=== PATIENT | female | born 1985 | race Caucasian/White ===

== ENCOUNTER 2017-01-17 15:43 | Outpatient (RCR) | payer OTHER ==
[~2017-01-17 15:43] MED LIST: ADDERALL XR15 MG; BCP TD; COLACE 100100 MG/CAP PO; CONCERTA; CONCERTA54 MG PO; EFFEXOR 75M75 MG/TAB PO; EFFEXOR50 MG PO; LO LOESTRIN FE1 TAB PO; METRONIDAZOLE500 MG PO; NORETHINDRONE 5 MG PO; PERCOCET 325 MG1 TAB PO; RITALIN; RITALIN 20M20 MG/TAB PO; TYLENOL 500MG500 MG PO; VICODIN 5/5001 UDTAB PO; WELLBUTRIN PO; ZOFRAN 4MG T4 MG/TAB PO; ZOFRAN ODT4 MG PO; ZOFRAN4 M1 PO
== END 2017-02-05 07:48 ==
LOC: WSOH 15:43
DX: S05.02XA Injury of conjunctiva and corneal abrasion without foreign body, left eye, initial encounter (principal); H53.71 Glare sensitivity; W22.8XXA Striking against or struck by other objects, initial encounter; Y99.0 Civilian activity done for income or pay

== ENCOUNTER 2018-10-03 08:26 | Outpatient (RCR) | payer OTHER | END 2018-10-07 15:36 | LOC: WSOH 08:26 | DX: S83.92XD Sprain of unspecified site of left knee, subsequent encounter (principal); Z90.710 Acquired absence of both cervix and uterus; Z90.89 Acquired absence of other organs | CPT/HCPCS: 24774; G0283-GP; L1810 ==

== ENCOUNTER 2018-12-18 15:30 | Outpatient (RCR) | payer OTHER | END 2018-12-29 13:17 | disposition home or self-care (01) | LOC: WSPT 15:30 | DX: S83.512A Sprain of anterior cruciate ligament of left knee, initial encounter (principal); T14.8XXA Other injury of unspecified body region, initial encounter; M23.52 Chronic instability of knee, left knee ==

== ENCOUNTER 2019-07-19 16:22 | Emergency (ER) | payer MEDICAID ==
[~2019-07-19] VITALS: Ht 170.2 cm; Wt 100.0 kg
[2019-07-19 16:31] VITALS: TEMP 98.7
[2019-07-19 17:19] LABS: BASO # 0.1 (0.0-0.2); BASO % 0.7 % (0.0-2.0); EOS # 0.2 (0.0-0.7); EOS % 1.8 % (0-4.0); GRAN % 53.7 % (42.2-75.2); HEMATOCRIT 44.2 % (37.0-47.0); HEMOGLOBIN 14.7 g/dl (12.5-16.0); LYMPH # 3.6 (1.2-3.4); LYMPH % 38.2 % (20.0-51.0); MEAN CELL VOLUME 89 fl (80.0-100.0); MEAN CORPUSCULAR HEMOGLOBIN 30 pg (27.0-31.0); MEAN CORPUSCULAR HGB CONC 33 g/dl (33.0-37.0); MEAN PLATELET VOLUME 9.9 fl (7.4-10.4); MONO # 0.5 (0.1-0.6); MONO % 5.3 % (1.7-9.3); PLATELET COUNT 271 K/mm3 (130-400); RED BLOOD COUNT 4.97 M/mm3 (4.10-5.30); REDCELL DISTRIBUTION WIDTH-CV 12.6 % (11.5-14.5)
[2019-07-19 17:22] LABS: ALBUMIN 4.6 gm/dL (3.5-5.0); BILIRUBIN,TOTAL 0.5 mg/dL (0.0-1.0); C-REACTIVE PROTEIN 0.7 mg/dL (0.0-0.9); CALCIUM 9.4 mg/dL (8.4-10.2); CREATININE, serum 0.79 (0.52-1.25); POTASSIUM 3.4 mmol/L (3.4-5.0)
[2019-07-19] MEDS ORDERED: BENADRYL50 MG PO (17:26)
[2019-07-19] MEDS ORDERED: TYLENOL 500MG500 MG PO (17:27)
[2019-07-19] MEDS ORDERED: COZAAR100 MG PO (17:28)
[2019-07-19] MEDS ORDERED: MICROZIDE12.5 MG PO (17:28)
[2019-07-19 18:55] LABS: ERYTHROCYTE SEDIMENTATION RATE 6 mm/hr (0-20)
[2019-07-19 19:50] VITALS: BP 120/84; PULSE 87
== END 2019-07-19 20:00 | disposition home or self-care (01) ==
LOC: COL.ER 16:22
PROVIDERS: Emergency Medicine
DX: R51 Headache (principal); F32.9 Major depressive disorder, single episode, unspecified; F90.9 Attention-deficit hyperactivity disorder, unspecified type
CPT/HCPCS: J1885; J2405; J3010; J7030

== ENCOUNTER 2020-12-07 18:46 | Emergency (ER) | payer MEDICARE, MEDICAID ==
[~2020-12-07] VITALS: Ht 170.2 cm; Wt 106.8 kg
[~2020-12-07 18:46] MED LIST changes: +BENADRYL50 MG PO; +COZAAR100 MG PO; +MICROZIDE12.5 MG PO
[2020-12-07 19:14] VITALS: TEMP 98.1
[2020-12-07 21:38] LABS: BASO # 0.1 (0.0-0.2); BASO % 0.8 % (0.0-2.0); EOS # 0.2 (0.0-0.7); EOS % 1.8 % (0-4.0); GRAN # 4.9 (1.4-6.5); GRAN % 50.7 % (42.2-75.2); HEMATOCRIT 45.6 % (37.0-47.0); HEMOGLOBIN 14.8 g/dl (12.5-16.0); LYMPH % 41.3 % (20.0-51.0); MEAN CELL VOLUME 93 fl (80.0-100.0); MEAN CORPUSCULAR HEMOGLOBIN 30 pg (27.0-31.0); MEAN CORPUSCULAR HGB CONC 33 g/dl (33.0-37.0); MEAN PLATELET VOLUME 9.7 fl (7.4-10.4); MONO # 0.5 (0.1-0.6); MONO % 5.2 % (1.7-9.3); PLATELET COUNT 282 K/mm3 (130-400); RED BLOOD COUNT 4.91 M/mm3 (4.10-5.30); REDCELL DISTRIBUTION WIDTH-CV 12.9 % (11.5-14.5)
[2020-12-07 21:56] LABS: ALANINE AMINOTRANSFERASE 58 U/L (4-34); ALBUMIN 4.4 gm/dL (3.5-5.0); ALKALINE PHOSPHATASE 93 U/L (50-136); ANION GAP 4 mmol/L (7-16); AST,SGOT 39 U/L (15-37); BILIRUBIN,TOTAL 0.8 mg/dL (0.0-1.0); BLOOD UREA NITROGEN 10 mg/dL (7-17); CALCIUM 9.4 mg/dL (8.4-10.2); CARBON DIOXIDE 31 mmol/L (22-30); CHLORIDE 103 mmol/L (98-107); CREATININE, serum 0.73 (0.52-1.25); GLUCOSE 93 mg/dL (74-106); POTASSIUM 3.6 mmol/L (3.4-5.0); SODIUM 138 mmol/L (137-145); TOTAL PROTEIN 7.9 gm/dL (6.4-8.2)
[2020-12-07 22:36] LABS: TROPONIN-I < 0.012 ng/mL (0.000-0.035)
[2020-12-07 23:24] VITALS: BP 119/69; PULSE 89
[2020-12-07] MEDS ORDERED: ATARAX50 MG PO (23:24)
== END 2020-12-07 23:24 | disposition home or self-care (01) ==
LOC: COL.ER 18:46
PROVIDERS: Emergency Medicine
DX: F41.0 Panic disorder [episodic paroxysmal anxiety] (principal); F32.9 Major depressive disorder, single episode, unspecified; R07.89 Other chest pain; Z56.3 Stressful work schedule; Z79.899 Other long term (current) drug therapy

== ENCOUNTER 2021-08-27 07:12 | Emergency (ER) | payer MEDICARE, MEDICAID ==
[~2021-08-27] VITALS: Ht 170.2 cm; Wt 106.8 kg
[~2021-08-27 07:12] MED LIST changes: +ATARAX50 MG PO
[2021-08-27 07:19] VITALS: TEMP 98.8
[2021-08-27 07:40] LABS: BASO % 0.3 % (0.0-2.0); EOS # 0.1 K/mm3 (0.0-0.7); GRAN # 8.7 K/mm3 (1.4-6.5); HEMATOCRIT 42.3 % (37.0-47.0); HEMOGLOBIN 14.4 g/dl (12.5-16.0); LYMPH # 0.9 K/mm3 (1.2-3.4); LYMPH % 8.4 % (20.0-51.0); MEAN CELL VOLUME 87 fl (80.0-100.0); MEAN CORPUSCULAR HEMOGLOBIN 30 pg (27-31); MEAN CORPUSCULAR HGB CONC 34 g/dl (33.0-37.0); MEAN PLATELET VOLUME 9.5 fl (7.4-10.4); MONO # 0.5 K/mm3 (0.1-0.6); MONO % 4.9 % (1.7-9.3); PLATELET COUNT 269 K/mm3 (130-400); RED BLOOD COUNT 4.84 M/mm3 (4.10-5.30); REDCELL DISTRIBUTION WIDTH-CV 12.8 % (11.5-14.5)
[2021-08-27 07:59] LABS: ALBUMIN 3.9 gm/dL (3.5-5.0); C-REACTIVE PROTEIN 4.13 mg/dL (0.00-0.50); CALCIUM 8.6 mg/dL (8.4-10.2); CREATININE, serum 0.73 mg/dL (0.57-1.11); POTASSIUM 3.6 mmol/L (3.5-4.5); TOTAL PROTEIN 7.3 gm/dL (6.2-8.1)
[2021-08-27 08:41] LABS: COLLECTION METHOD CLEAN CATCH
[2021-08-27 08:49] LABS: PH 8 (5-8); SQUAMOUS EPITHELIAL 0-2 /hpf (0-10); URINE APPEARANCE Clear (CLEAR/HAZY); URINE BACTERIA None Seen /hpf (NONE SEEN); URINE BILIRUBIN Negative (NEGATIVE); URINE BLOOD Negative (NEGATIVE); URINE COLOR Straw (YELLOW); URINE GLUCOSE Negative (NEGATIVE); URINE KETONE Negative (NEGATIVE); URINE LEUKOCYTE ESTERASE Negative (NEGATIVE); URINE NITRATE Negative (NEGATIVE); URINE PROTEIN(semi-quant) Negative (NEGATIVE); URINE RBC None Seen /hpf (0-2); URINE UROBILINOGEN Negative (NEGATIVE)
[2021-08-27] MEDS ORDERED: ZOFRAN ODT4 MG PO (10:09)
[2021-08-27 12:04] VITALS: BP 146/94; PULSE 102
== END 2021-08-27 12:44 | disposition home or self-care (01) ==
LOC: COL.ER 07:12
PROVIDERS: Family Medicine
DX: R10.11 Right upper quadrant pain (principal); R10.31 Right lower quadrant pain; R11.2 Nausea with vomiting, unspecified; R42 Dizziness and giddiness; R51.9 Headache, unspecified; R79.82 Elevated C-reactive protein (CRP); Z20.822 Contact with and (suspected) exposure to COVID-19; Z32.02 Encounter for pregnancy test, result negative
CPT/HCPCS: C9113; J2270; J2405; J2550; J7030; J7120; Q9967